=== PATIENT | female | born 1985 ===

== ENCOUNTER 2022-09-20 05:05 | Day surgery (SDC) | payer OTHER ==
[~2022-09-20] VITALS: Ht 154.9 cm; Wt 61.7 kg
[~2022-09-20 05:05] MED LIST: AMBIEN5 MG PO
== END 2022-09-20 15:30 | disposition home or self-care (01) ==
LOC: CIR.AMB 05:05 → EDBD 08:00 → CIR.AMB 15:30
PROVIDERS: ATTEND Specialist
DX: K80.10 Calculus of gallbladder with chronic cholecystitis without obstruction (principal); Z20.822 Contact with and (suspected) exposure to COVID-19